=== PATIENT | male | born 1950 | race Caucasian/White ===

== ENCOUNTER 2017-01-20 18:26 | Emergency (ER) | payer MEDICARE, BC ==
[2017-01-20] MEDS ORDERED: SODIUM CHLORIDE 0.9% 1000 ML SOL IV SCH (18:45)
[2017-01-20 19:07] LABS: HEMATOCRIT 36 % (39-53); MEAN CORPUSCULAR HGB CONC 33.5 gm/dl (32.0-36.0); MEAN CORPUSCULAR VOLUME 83 fL (80-100)
[2017-01-20 19:13] LABS: CALCIUM 9.1 mg/dl (8.5-10.1); POTASSIUM 4.4 mMol/L (3.5-5.1)
[2017-01-20 19:23] LABS: BASOPHILS % (MANUAL) 0 % (0-3); EOSINOPHILS % (MANUAL) 0 % (0-9); LYMPHOCYTES % (MANUAL) 16 % (10-50)
[2017-01-20 19:24] LABS: NORMAL RBCS PRESENT
[2017-01-20] MEDS ORDERED: CODEINE/GUAIFENESIN 5 ML SOL PO PRN (19:33)
[2017-01-20] MEDS ORDERED: CODEINE/GUAIFENESIN 5 ML SOL ONE ×2 (19:39→19:40)
[2017-01-20] MEDS ORDERED: CODEINE/GUAIFENESIN 5 ML SOL PO ONE (19:42)
[2017-01-20 19:46] VITALS: RESP 24; TEMP 98
[2017-01-20] MEDS ORDERED: HEPARIN 500 Unit PRE-FILL 100 U/ML SOL IV PRN (19:53)
[2017-01-20] MEDS ORDERED: HEPARIN SODIUM 100 U/ML SOL IV ONE (20:05)
[2017-01-20 20:23] VITALS: BP 110/66; PULSE 109; O2SAT 98
== END 2017-01-20 20:17 | disposition home or self-care (01) | DRG 204 ==
LOC: ED 18:26
DX: R04.2 Hemoptysis (principal)
CPT/HCPCS: 36415; 71010; 80048; 85007; 85027; 99284; J1644